=== PATIENT | male | born 1980 | race Hispanic/Latino ===

== ENCOUNTER → 2017-06-18 | Day surgery (SDC) | payer OTHER ==
[2017-06-13 11:54] LABS: BASOPHILS # (AUTO) 0.1 (0.0-0.1); BASOPHILS % 0.6 % (0.0-1.0); EOSINOPHILS # (AUTO) 0.6 (0.0-0.4); EOSINOPHILS % 5.6 % (0.0-6.0); HEMATOCRIT 45.5 % (38.2-49.6); HEMOGLOBIN 15.2 g/dL (14.0-18.0); LYMPHOCYTES # (AUTO) 3.6 (1.0-3.2); LYMPHOCYTES % 33.6 % (18.0-39.1); MEAN CORPUSCULAR HEMOGLOBIN 29.1 pg (28-32); MEAN CORPUSCULAR HGB CONC 33.4 g/dL (31-35); MONOCYTES # (AUTO) 0.5 (0.2-0.8); MONOCYTES % 4.9 % (4.4-11.3); NEUTROPHILS # (AUTO) 5.9 (2.1-6.9); NEUTROPHILS % 55.2 % (38.7-80.0); PLATELET COUNT 129 x10e3/uL (140-360); RED BLOOD COUNT 5.23 x10e6/uL (4.3-5.7); RED CELL DISTRIBUTION WIDTH 12.6 % (11.7-14.4)
[2017-06-13 13:38] LABS: ANISOCYTOSIS SLIGHT; PLATELET ESTIMATE SLIGHTLY DECREASED; PLATELET MORPHOLOGY COMMENT FEW LARGE; RBC MORPHOLOGY COMMENT NORMAL
[~2017-06-18] MED LIST: BACITRACIN 50,000 UNIT VIAL ONE; BACLOFEN10 MG PO; BUPIVACAINE HCL 0.5% INJ 30 ML VIAL INJ ONE; CEFAZOLIN SOD 2 GM/D5W 50ML 50 ML IV ONE; DEXAMETHASONE SOD PHOS INJ 4 MG/ML VIAL ONE; FENTANYL CITRATE/PF 100MCG/2 ML INJ ONE; IBUPROFEN400 MG PO; KETOROLAC TROMETHAMINE 30 MG/ML VIAL ONE; LIDOCAINE HCL 2% LOCAL INJ 5 ML SDV VIAL INJ ONE; MELOXICAM7.5 MG PO; MIDAZOLAM HCL 2 MG/2 ML VIAL ONE; ONDANSETRON HCL INJ 2 MG/ML VIAL ONE; PROPOFOL IV EMULSION 10 MG/ML 20 ML VIAL ONE; SEVOFLURANE INHAL SOLN 250 ML PEN BTL ONE; TYLENOL PO
--- NOTE | 2017-06-18 12:19 | Operative Report ---
DATE OF PROCEDURE: June 18, 2017 PREOPERATIVE DIAGNOSIS: Left inguinal hernia. POSTOPERATIVE DIAGNOSIS: Left inguinal hernia. PROCEDURE: Repair of left inguinal hernia with mesh. METAL MOULDER'S ASSISTANT: None. ANESTHESIA: General. INDICATIONS AND FINDINGS: Patient is a 36-year-old male who complains of bulge in the left groin. At surgery, patient was found to have an indirect left inguinal hernia. TECHNIQUE: After adequate general anesthesia, with the patient in the supine position, the left groin area was prepped and draped in sterile fashion with Wil solution. Transverse incision made in left inguinal area and carried down through the subcutaneous tissue and More's fascia until the external oblique fascia was seen. This was opened in the direction of its fibers through the external ring. The ilioinguinal nerve was identified and preserved. Spermatic cord was dissected free from the floor of the inguinal canal. Cremasteric fibers were opened. There was a large indirect hernia with hernia sac and preperitoneal fat. This entire herniated mass was dissected free up to the internal ring and then reduced through the internal ring. A large Prolene mesh hernia system, which had been soaked in antibiotic solution, was placed through the internal ring with underlay patch opened up in the preperitoneal space. Onlay patch was laid over the floor of the inguinal canal with keyhole opening created to allow exit of the spermatic cord. The onlay patch was sutured to shelving edge of inguinal ligament laterally and conjoined tendon medially. This was done with interrupted sutures of 0 Prolene. Care was taken not to entrap the genitofemoral or iliohypogastric nerves. Once the mesh was in place, the spermatic cord and ilioinguinal nerve were returned to their normal positions. The wound was inspected for hemostasis, which was seen to be adequate. The wound was then infiltrated with 0.5% Marcaine. The external oblique fascia was closed with running suture of 2-0 Vicryl. Care was taken not to entrap the spermatic cord or ilioinguinal nerve. More's fascia was closed with running suture of 3-0 Vicryl. Skin was closed with a running subcuticular suture of 4-0 Vicryl. Dermabond and sterile dressing were applied. The patient tolerated the procedure well. Estimated blood loss was 10 mL. There were no complications. All counts were correct. Patient was taken to the recovery room in satisfactory condition. Job#: [id number]
== END | disposition home or self-care (01) ==
LOC: OR 06:59
PROVIDERS: ATTEND Surgery
DX: K40.90 Unilateral inguinal hernia, without obstruction or gangrene, not specified as recurrent (principal); K21.9 Gastro-esophageal reflux disease without esophagitis; N20.0 Calculus of kidney; Z01.812 Encounter for preprocedural laboratory examination; Z68.42 Body mass index [BMI] 45.0-49.9, adult
CPT/HCPCS: 36415; 49505; 85025; C1781; J1100; J1885; J2001; J2250; J2405

== ENCOUNTER → 2023-09-26 | Day surgery (SDC) | payer OTHER ==
[~2023-09-26] MED LIST changes: +ALLOPURINOL300 MG PO; -BACITRACIN 50,000 UNIT VIAL ONE; +BENEFIBER1 EAC1 PO; -BUPIVACAINE HCL 0.5% INJ 30 ML VIAL INJ ONE; -CEFAZOLIN SOD 2 GM/D5W 50ML 50 ML IV ONE; -DEXAMETHASONE SOD PHOS INJ 4 MG/ML VIAL ONE; +IMODIUM2 MG PO; -KETOROLAC TROMETHAMINE 30 MG/ML VIAL ONE; +MAALOX MAXIMUM355 ML PO; +OMEPRAZOLE40 MG PO; -ONDANSETRON HCL INJ 2 MG/ML VIAL ONE; -SEVOFLURANE INHAL SOLN 250 ML PEN BTL ONE; +SIMETHICONE 40 MG/0.6 ML BTL ONE; +TYLENOL ARTHRITIS PO
[2023-09-26] MEDS: LACTATED RINGER'S 1,000 ML ONE (07:05)
[2023-09-26 08:05] VITALS: BP 136/89; PULSE 67; RESP 18; O2SAT 97
== END | disposition home or self-care (01) ==
LOC: OR 06:15
PROVIDERS: ATTEND Internal Medicine Gastroenterology
DX: K20.90 Esophagitis, unspecified without bleeding (principal); T18.128A Food in esophagus causing other injury, initial encounter; K29.50 Unspecified chronic gastritis without bleeding; K21.9 Gastro-esophageal reflux disease without esophagitis; Z98.84 Bariatric surgery status; K59.00 Constipation, unspecified; K62.5 Hemorrhage of anus and rectum; R03.0 Elevated blood-pressure reading, without diagnosis of hypertension; M06.9 Rheumatoid arthritis, unspecified; M19.09 Primary osteoarthritis, other specified site; Z88.6 Allergy status to analgesic agent; Z01.810 Encounter for preprocedural cardiovascular examination; Z79.899 Other long term (current) drug therapy; Z68.42 Body mass index [BMI] 45.0-49.9, adult
CPT/HCPCS: 43239; 93005; J2001; J2250; J2704; J3010; J7121

== ENCOUNTER 2023-11-17 05:14 | Emergency (ER) | payer OTHER ==
[~2023-11-17] VITALS: Ht 170.2 cm; Wt 132.0 kg
[~2023-11-17 05:14] MED LIST changes: -FENTANYL CITRATE/PF 100MCG/2 ML INJ ONE; -LIDOCAINE HCL 2% LOCAL INJ 5 ML SDV VIAL INJ ONE; -MIDAZOLAM HCL 2 MG/2 ML VIAL ONE; -PROPOFOL IV EMULSION 10 MG/ML 20 ML VIAL ONE; -SIMETHICONE 40 MG/0.6 ML BTL ONE
[2023-11-17] MEDS: ONDANSETRON HCL INJ 2MG/ML 2ML 2 MG/ML VIAL IV STA (05:37)
[2023-11-17] MEDS: FAMOTIDINE 20 MG/2 ML VIAL IV STA (05:37)
[2023-11-17 05:39] LABS: BASOPHILS # (AUTO) 0.1 (0.0-0.1); BASOPHILS % 0.6 % (0.0-1.0); EOSINOPHILS # (AUTO) 0.5 (0.0-0.4); EOSINOPHILS % 5.6 % (0.0-6.0); HEMATOCRIT 43.9 % (38.2-49.6); HEMOGLOBIN 14.4 g/dL (14.0-18.0); LYMPHOCYTES # (AUTO) 3.2 (1.0-3.2); LYMPHOCYTES % 36.3 % (18.0-39.1); MEAN CORPUSCULAR HEMOGLOBIN 28.8 pg (28-32); MEAN CORPUSCULAR HGB CONC 32.8 g/dL (31-35); MEAN CORPUSCULAR VOLUME 87.8 fL (81-99); MONOCYTES # (AUTO) 0.6 (0.2-0.8); MONOCYTES % 6.5 % (4.4-11.3); NEUTROPHILS # (AUTO) 4.5 (2.1-6.9); NEUTROPHILS % 50.7 % (38.7-80.0); PLATELET COUNT 244 x10e3/uL (140-360); RED CELL DISTRIBUTION WIDTH 13.2 % (11.7-14.4)
[2023-11-17 06:03] LABS: ALANINE AMINOTRANSFERASE 39 IU/L (0-55); ALBUMIN 3.9 g/dL (3.5-5.0); ALBUMIN/GLOBULIN RATIO 1.2 (0.8-2.0); ALKALINE PHOSPHATASE 124 IU/L (40-150); ANION GAP 14.5 mmol/L (8-16); BILIRUBIN,TOTAL 0.5 mg/dL (0.2-1.2); BLOOD UREA NITROGEN 12 mg/dL (7-26); BUN/CREATININE RATIO 14 (6-25); CALCIUM 9.2 mg/dL (8.4-10.2); CARBON DIOXIDE 25 mmol/L (22-29); CHLORIDE 107 mmol/L (98-107); CREATINE KINASE 76 IU/L (30-200); CREATININE, SERUM 0.87 mg/dL (0.72-1.25); EST GLOMERULAR FILTRATION RATE 111 ML/MIN (>=60); GLUCOSE 90 mg/dL (74-118); POTASSIUM 3.5 mmol/L (3.5-5.1); SODIUM 143 mmol/L (136-145); TOTAL PROTEIN 7.2 g/dL (6.5-8.1)
[2023-11-17 06:28] LABS: TROPONIN I < 0.001 ng/mL (0-0.300)
[2023-11-17 07:00] VITALS: TEMP 98.7
[2023-11-17 07:30] VITALS: PULSE 69; RESP 16
[2023-11-17 07:52] VITALS: BP 130/84; PULSE 69; RESP 16; O2SAT 100
== END 2023-11-17 07:55 | disposition home or self-care (01) ==
LOC: ER 05:19
DX: K95.09 Other complications of gastric band procedure (principal); Z87.19 Personal history of other diseases of the digestive system; I49.3 Ventricular premature depolarization; Z88.6 Allergy status to analgesic agent; Y83.2 Surgical operation with anastomosis, bypass or graft as the cause of abnormal reaction of the patient, or of later complication, without mention of misadventure at the time of the procedure; Z11.52 Encounter for screening for COVID-19; Z79.899 Other long term (current) drug therapy
CPT/HCPCS: 36415; 71045; 80053; 82550; 83690; 83880; 84484; 85025; 93005; 99284; J2405; U0002